=== PATIENT | female | born 1985 | race Two or more races ===

== ENCOUNTER 2019-11-20 10:55 | Emergency (ER) | payer MEDICAID, SELFPAY ==
[2019-11-20 10:57] VITALS: BP 149/81; PULSE 103; PULSE 106; RESP 20; TEMP 36.9; O2SAT 100; BMI 20.6
--- NOTE | 2019-11-20 11:11 | ED.VIS.GI ---
History of Present Illness Informant: Patient, Significant Other - Abdominal Pain/Flank Pain Onset: Yesterday Context: Gradual Onset Timing: Continuous Quality: Sharp Location: RLQ Current Severity: 810 Maximum Severity: Severe Worsened by: Car ride, Movement Relieved by: Remaining Still - Nausea/Vomiting/Emesis GI Symptom: Nausea. Negative for: Vomiting - Diarrhea/Melena/Hematochezia GI Symptom: Negative for: Diarrhea, Melena, Hematochezia Associated Symptoms: Negative for: Dysuria, Frequency, Hematuria, Urgency LMP: last week Narrative: 34-year-old female with a past medical history of anxiety presents to the emergency department with right lower quadrant abdominal pain. Patient states that yesterday evening she began to have the pain and it was a dull pain however over the past 12 hours it has gotten progressively worse it is a sharp right lower quadrant pain. She states it is been constant. It is worse with movement it was worse with her car ride she has had nausea and no appetite. She started to have chills this morning as well. No documented fever. No vomiting. No diarrhea. No constipation. No urinary symptoms. No vaginal bleeding or discharge. Her last menstrual. Was a week ago. No history of kidney stones, or ovarian cyst. No history of abdominal surgeries. Prior similar symptoms: No Recent Illness/Hospitalization: No <Darshan Theodore - Last Filed: 11/20/19 14:34> <Bianca Marsh - Last Filed: 11/20/19 14:46> Chief Complaint: Abd Pain Past Medical History <Darshan Theodore - Last Filed: 11/20/19 14:34> <Bianca Marsh - Last Filed: 11/20/19 14:46> - Allergies and Home Meds Allergies/Adverse Reactions: Allergies amphotericin B Allergy (Verified 11/20/19 10:56) PT UNSURE OF REACTION clindamycin Allergy (Verified 11/20/19 10:56) PT UNSURE OF REACTION Primary Care Physician: Antonia Mims DO [STAFF PHYSICIAN] - Review of Systems General: Denies: Chills, Fever, Sweats Eyes: Denies: Visual changes - bilaterally, Diplopia ENT: Denies: Rhinorrhea, Sore throat Cardiovascular: Denies: Chest pain, Palpitations Respiratory: Denies: Dyspnea, Cough, Dyspnea on exertion Gastrointestinal: Reports: Abdominal pain, Nausea. Denies: Vomiting, Diarrhea, Constipation, Melena, Hematochezia Genitourinary: Denies: Dysuria, Hematuria, Frequency Musculoskeletal: Denies: Back pain, Extremity Pain Skin: Denies: Rash, Wounds Neurological: Denies: Headache, Weakness, Numbness <Diego Theodoreony - Last Filed: 11/20/19 14:34> Physical Exam Vital Signs/Narrative: Vital Signs Temp Pulse Resp BP Pulse Ox 11/20/19 10:57 98.4 F 106 H 20 H 149/81 H 100 Inital Vital Signs reviewed: Yes General: Well nourished, Well developed, No Acute Distress Head: Normocephalic, Atraumatic Eyes: Perrl, EOMI ENT: Moist mucous membranes, No rhinorrhea Neck: Supple, Nontender Cardiovascular: Regular rate, Regular rhythm, No murmurs Respiratory: No distress, CTA bilaterally, Chest nontender Abdomen: Soft, Nondistended, Normal bowel sounds, Tender - Lower quadrant tenderness on palpation., Rovsig's sign. Negative for: Guarding, Rebound tenderness, Psoas sign, Obturator sign, Gibbs's sign Back: Nontender, Normal Inspection Extremities: Nontender, No edema Skin: Normal color, No rash Neurological: Alert, Oriented x3, Cranial nerves II-XII grossly intact, Normal Strength, Normal Sensation Psychological: Normal affect, Normal Mood <Darshan Theodore - Last Filed: 11/20/19 14:34> Vital Signs/Narrative: Vital Signs Temp Pulse Resp BP Pulse Ox 11/20/19 10:57 98.4 F 106 H 20 H 149/81 H 100 <Biacna Marsh - Last Filed: 11/20/19 14:46> Diagnostic/Tx/Re-eval CT: Abdomen and Pelvis US: Pelvis - Medical Decision Making Patient declined analgesia or antiemetics and also declined IV fluids. Patient was having right lower quadrant pain we had concern for both appendicitis and ovarian cyst. She was evaluated and then we ordered a CT abdomen and pelvis with oral and IV contrast while she was waiting for the contrast before she could get her CT scan we did a transvaginal ultrasound which demonstrated a right-sided ovarian cyst, mild fluid in the cervical canal, IUD in the uterus. Her laboratory work-up was unremarkable including urinalysis. Her was negative. CT abdomen and pelvis demonstrated no acute findings. The appendix was nonvisualized with there was no abnormality seen in the right lower quadrant of the abdomen. It exam the patient states she feels improved. She is able to tolerate by mouth. Her repeat abdominal exam was soft and nontender. Patient states that she has already scheduled an appointment with her [employer] LEADER in about 10 days from now. She will follow-up then. I prescribed her ibuprofen. Return precautions discussed. Discharged Impressions Transvaginal US 11/20/19 11:32 IMPRESSION: IUD in the uterus in the fundal region. Mild fluid in the cervical canal with a quite small echogenic nodule. Nabothian cysts. Right ovarian cyst. Mild pelvic fluid. Electronically Signed: Lucius Johnson DO at 13:37 EDT Tel [phone], Service support , Abdomen/Pelvis CT 11/20/19 11:33 IMPRESSION: Nonvisualization of the appendix. Electronically Signed: Jeanna Black MD at 13:56 EDT Tel , Service support , 11/20/19 11:32 Transvaginal Non- [US] Stat 11/20/19 11:33 Abdomen/Pelvis WITH Contrast [CT] Stat Laboratory Results 11/20/19 11/20/19 11/20/19 11:10 11:10 11:10 WBC 10.9 RBC 4.53 Hgb 13.9 Hct 41.4 MCV 91.4 MCH 30.7 MCHC 33.6 RDW Std Deviation 41.8 RDW Coeff of Rick 12.6 Plt Count 187 MPV 9.9 Immature Gran % (Auto) 0.300 Neut % (Auto) 85.7 H Lymph % (Auto) 10.5 L [place] % (Auto) 3.0 Eos % (Auto) 0.3 Baso % (Auto) 0.2 Absolute Neuts (auto) 9.4 H Absolute Lymphs (auto) 1.15 Nucleated RBC % 0 Sodium 136 Potassium 3.4 L Chloride 106 Carbon Dioxide 23.0 Anion Gap 7 BUN 19 H Creatinine 0.79 Estim Creat Clear Calc 91.97 Est GFR (MDRD) Af Amer 107 Est GFR (MDRD) Non-Af 88 BUN/Creatinine Ratio 24.1 H Glucose 139 H Calcium 8.8 Serum , Qual NEGATIVE Urine Color Urine Clarity Urine pH Ur Specific [place] Urine Protein Urine Glucose (UA) Urine Ketones Urine Occult Blood Urine Nitrite Urine Bilirubin Urine Urobilinogen Ur Leukocyte Esterase Urine RBC Urine WBC Ur Squamous Epith Cells Urine Bacteria Urine Mucus 11/20/19 11:10 WBC RBC Hgb Hct MCV MCH MCHC RDW Std Deviation RDW Coeff of Rick Plt Count MPV Immature Gran % (Auto) Neut % (Auto) Lymph % (Auto) [place] % (Auto) Eos % (Auto) Baso % (Auto) Absolute Neuts (auto) Absolute Lymphs (auto) Nucleated RBC % Sodium Potassium Chloride Carbon Dioxide Anion Gap BUN Creatinine Estim Creat Clear Calc Est GFR (MDRD) Af Amer Est GFR (MDRD) Non-Af BUN/Creatinine Ratio Glucose Calcium Serum , Qual Urine Color Yellow Urine Clarity Sl. Cloudy Urine pH 8.0 Ur Specific [place] 1.010 Urine Protein Negative Urine Glucose (UA) Normal Urine Ketones 50 H Urine Occult Blood Negative Urine Nitrite Negative Urine Bilirubin Negative Urine Urobilinogen Normal Ur Leukocyte Esterase Negative Urine RBC 0 SEEN Urine WBC 0 SEEN Ur Squamous Epith Cells 0-5 SEEN Urine Bacteria 0 SEEN Urine Mucus 0 SEEN <Darshan Theodore - Last Filed: 11/20/19 14:34> - Medical Decision Making Patient seen and evaluated with physicians information assistant. Patient was independently interviewed and examined. Patient presents with right lower quadrant abdominal pain. She states she is had mild pain for the past 2 weeks. At that time she had had an abnormal menstrual cycle. Last evening the pain became much more severe. She does report chills but no measured fever. No urinary symptoms. Patient lying in bed in no acute distress, but does appear uncomfortable. Heart is regular rate and rhythm. Lung sounds are clear. Abdomen is soft with focal tenderness in the right lower quadrant. No rebound tenderness. Lab work and imaging studies are pursued. Patient has evidence of ovarian cyst without torsion. Urgency test is negative. CT scan does not reveal evidence of appendicitis. At this time patient does feel improved and already has an appointment made with her [employer]. Disposition: Discharge Impression: Ovarian cyst <Bianca Marsh - Last Filed: 11/20/19 14:46> ED Disposition <Darshan Theodore - Last Filed: 11/20/19 14:34> <Bianca Marsh - Last Filed: 11/20/19 14:46> - Plan for ED Patient: Disposition: Home or Assisted Living Diagnosis: Abdominal pain, Ovarian cyst Instructions: ED Cyst Ovarian Prescriptions: Ibuprofen [Motrin] 800 mg PO TID PRN PRN #20 tab PRN Reason: Pain Or Fever Prescription Printed Referrals: Antonia Mims DO [STAFF PHYSICIAN] -
[2019-11-20 11:26] LABS: Bacteria 0 SEEN /hpf (None Seen); Mucous, Urine 0 SEEN /hpf (<or=2+); Red Blood Cells-Urine 0 SEEN /hpf (0-5); White Blood Cells 0 SEEN /hpf (0-5)
[2019-11-20 11:28] LABS: Color, Urine Yellow (Yellow); Glucose, Dipstick Normal (Normal); Ketone-Dipstick 50 mg/dl (Negative); Leukocyte Esterase-Dipstick Negative /ul (Negative); Nitrite-Dipstick Negative (Negative); Occult Blood-Urine Negative /ul (Negative); Protein-Dipstick Negative (Negative); Urine Bilirubin Dipstick Negative (Negative); Urine Clarity Sl. Cloudy (Clear); Urine Urobilinogen Normal (Normal)
[2019-11-20 11:32] LABS: Absolute Lymphocyte Count 1.15 X10^3/uL (0.83-4.51); Absolute Neutrophil Count 9.4 X10^3/uL (2.0-7.7); Basophil# 0.02 X10^3/uL; Basophil% 0.2 % (0-1); Eosinophil# 0.03 X10^3/uL; Eosinophils% 0.3 % (0-5); Hematocrit 41.4 % (37-47); Hemoglobin 13.9 g/dL (12.0-15.0); Lymphocyte # 1.15 X10^3/ul (4.0); Lymphocyte % 10.5 % (19-41); Mean Corp Hgb Conc 33.6 g/dL (32-36); Mean Corpuscular Hgb 30.7 pg (27.0-32.0); Mean Corpuscular Volume 91.4 fL (81-99); Mean Platelet Vol. 9.9 fl (6.2-12.0); Monocyte# 0.33 X10^3/uL; NRBC Flagged by Analyzer 0 % (0-5); Neutrophil # 9.35 X10^3/uL (2.7-7.7); Neutrophil % 85.7 % (47-70); Platelet Count 187 K/mm3 (150-450); RBC Distribution Width CV 12.6 % (11.6-14.6); RBC Distribution Width SD 41.8 fl (35.1-43.9); Red Blood Count 4.53 M/mm3 (4.2-5.4); White Blood Count 10.9 K/mm3 (4.4-11.0)
--- NOTE | 2019-11-20 11:32 | US_ITS ---
STUDY: ULTRASOUND TRANSVAGINAL CLINICAL: Female, 34 years old. RT PELVIC PAIN X 2 DAYS -- IUD TECHNIQUE: Transvaginal COMPARISON: None. FINDINGS: Normal uterine size measuring 9.9 x 4.1 x 4.0 cm in maximal craniocaudal dimension. There are no myometrial masses. Normal endometrial thickness measuring 7 mm. There are no endometrial masses, and there is no fluid in the endometrial cavity. IUD is noted located within the fundal region. Nabothian cysts at the uterine cervix. Mild fluid in the cervical canal. There is an echogenic focus in the cervical canal measuring 4 mm. Normal right ovary, measuring 2.9 x 3.0 x 2.8 cm. There is a 1.6 x 1.1 x 1.0 cm cyst. Normal left ovary, measuring 3.1 x 2.6 x 1.5 cm. There are multiple follicles without a dominant cyst. There is mild free fluid in the pelvis. US/Transvaginal Non- IMPRESSION: IUD in the uterus in the fundal region. Mild fluid in the cervical canal with a quite small echogenic nodule. Nabothian cysts. Right ovarian cyst. Mild pelvic fluid. Electronically Signed: Lucius Johnson DO at 13:37 EDT Tel [phone], Service support ,
--- NOTE | 2019-11-20 11:33 | CT_ITS ---
STUDY: CT ABDOMEN AND PELVIS WITH CONTRAST REASON FOR EXAM: Female, 34 years old. PT STATED RLQ PAIN X 1 DAY, NO SURGICAL HX RADIATION DOSAGE (If Supplied By Facility): CTDIvol = ( 12.49 ) mGy, DLP = ( 371.92 ) mGycm TECHNIQUE: Transaxial images were obtained from the dome of the diaphragm to the symphysis pubis without oral contrast. Oral and amp; IV Readi-CAT and amp; 100mL Isovue-300 was administered. Sagittal and coronal images were reconstructed. Individualized dose optimization techniques were used for this CT. COMPARISON: None. FINDINGS: The visualized lung bases are unremarkable. The visualized portions of the heart are within normal limits. There is decreased attenuation of the liver consistent with steatosis. Normal gallbladder and extrahepatic biliary system. Normal spleen. Normal pancreas. Normal bilateral adrenal glands. Normal right kidney. Normal left kidney. Normal visualized stomach. Normal small intestine. Normal colon. There is non-visualization of the appendix. Normal abdominal aorta. Normal inferior vena cava. Normal retroperitoneum. Normal urinary bladder. There is collapsed hyperenhancing cyst at the right adnexa (axial image #93 series 2). The uterus demonstrate the presence of IUD device. Normal abdominal wall. Normal osseous structures. CT/Abdomen/Pelvis WITH Contrast IMPRESSION: Nonvisualization of the appendix. Electronically Signed: Jeanan Black MD at 13:56 EDT Tel , Service support ,
[2019-11-20 11:35] LABS: Squamous Epithelial Cells - UA 0-5 SEEN /hpf (5-10)
[2019-11-20 11:45] LABS: Anion Gap 7 (5-15); BUN 19 mg/dL (7-18); BUN/Creat Ratio 24.1 RATIO (10-20); Calcium,Total 8.8 mg/dL (8.5-10.1); Chloride 106 mmol/L (98-107); Creatinine, Serum 0.79 mg/dL (0.55-1.02); EST Glomerular Filtration Rate 88 mL/min (>60); Est Glom Filt Rate - Afr Amer 107 mL/min (>60); Estimated Creatinine Clearance 91.97 ml/min; Glucose 139 mg/dL (74-106); Potassium 3.4 mmol/L (3.5-5.1); Sodium Level 136 mmol/L (136-145)
[2019-11-20 11:50] LABS: Internal QC Validated? YES +Cl - CLEAR BKGD; Pregnancy, Serum, hCG Quali. NEGATIVE Negative
--- NOTE | 2019-11-20 14:09 | ED.RN ---
resting quietly. refused meds
[2019-11-20 15:24] VITALS: BP 117/71; PULSE 96; RESP 16; O2SAT 96
== END 2019-11-20 15:25 | disposition home or self-care (01) ==
PROVIDERS: Emergency Provider Physician Assistant Medical
DX: N83.201 Unspecified ovarian cyst, right side (principal); F41.9 Anxiety disorder, unspecified; R10.31 Right lower quadrant pain; N88.8 Other specified noninflammatory disorders of cervix uteri
CPT/HCPCS: 74177; 76830; 80048; 81001; 84703; 85025; 93976; 96360; 99283; Q9967